=== PATIENT | female | born 1995 | race Two or more races ===

== ENCOUNTER 2018-09-22 17:17 | Emergency (ER) | payer OTHER ==
--- NOTE | 2018-09-22 17:51 | EDPHY ---
H & P Stated Complaint: pt had mech fall onto R elbow, L hand, and chin. -LOC, lac to chin Time Seen by Provider: 09/22/18 17:31 HPI/ROS: CHIEF COMPLAINT: Chin laceration right elbow injury HISTORY OF PRESENT ILLNESS: 23-year-old female arrives via private vehicle. Patient states that earlier today she was walking, was on her phone does not think attention, sustained a mechanical fall falling forward impacting her chin as well as impacted right elbow. She went to [facility] , had and x-ray performed of right elbow. Results of the x-ray are unknown however she brought the CD with her from [facility]. No upper extremity immobilization pre- hospital. She is also to the ER for wound repair for chin. She denies: Loss of consciousness, midline C-spine pain, mandible pain, dental malalignment, nausea, vomiting, headache, syncope, back pain, abdominal pain or trauma, back pain or trauma, peripheral paresthesia, weakness, numbness. PRIMARY CARE PROVIDER: [facility] REVIEW OF SYSTEMS: 10 systems reviewed and negative with the exception of the elements mentioned in the history of present illness PAST MEDICAL/SURGICAL HISTORY: no anticoagulant use, no relevant medical/ surgical history. Tetanus up-to-date SOCIAL HISTORY: denies alcohol use at time of incident PHYSICAL EXAM 1) GENERAL: Well-developed, well-nourished, alert and oriented. Appears to be in no acute distress. Answering questions appropriately. Observed ambulating stable steady gait without assistance 2) HEAD: Normocephalic, atraumatic 3) HEENT: Pupils equal, round, reactive to light bilaterally. Negative Horners. Nasopharynx, oropharynx, clear. No deformity or angulation of nose. No septal hematoma. No rhinorrhea. No oral trauma. Ears bilaterally with normal tympanic membranes. No hemotympanum. No fluid or blood in the external auditory canal. No raccoon eyes. No Medina sign. Teeth are normally aligned with no gross malocclusion, TMJ bilaterally nontender, facial bones nontender including the zygomatic arch, maxilla mandible. Midline chin laceration measuring 1.5 cm well delineated superficial. 4) NECK: No cervical collar is on. Posterior cervical spine is nontender, no stepoff, no effusion. Full range of motion which does not elicit any midline cervical spine pain, no posterior midline tenderness, no step-off. 5) LUNGS: Clear to auscultation bilaterally, no wheezes, no rhonchi, no retractions. No obvious signs of trauma. No chest wall pain. No flaring, no grunting. Moving symmetrically. No crepitus. 6) HEART: [Regular rate and rhythm, 7) ABDOMEN: No guarding, no rebound, no focal tenderness, no peritoneal signs, no signs of trauma, no ecchymosis 8) MUSCULOSKELETAL: Right upper extremity: No visible signs of trauma. Soft compartments throughout. Focally tender to palpation right radial head. Intact skin. Radial ulnar median nerve function intact distally. Otherwise, Moving all extremities, no focal areas of tenderness, no obvious trauma. 9) BACK: No midline vertebral tenderness, no fluctuance, no step-off, no obvious trauma, no visual or palpable abnormality. 10) SKIN: No laceration. No abrasion DIFFERENTIAL DIAGNOSIS: In no particular order including but not limited to fracture, sprain, strain, dislocation - Personal History Current Tetanus/Diphtheria Vaccine: Yes Current Tetanus Diphtheria and Acellular Pertussis (TDAP): Yes - Medical/Surgical History Hx Asthma: No Hx Chronic Respiratory Disease: No Hx Diabetes: No Hx Cardiac Disease: No Hx Renal Disease: No Hx Cirrhosis: No Hx Alcoholism: No Hx HIV/AIDS: No Hx Splenectomy or Spleen Trauma: No Other PMH: denies - Social History Smoking Status: Never smoked Constitutional: Initial Vital Signs Temperature (C) 37.5 C 09/22/18 17:38 Heart Rate 105 H 09/22/18 17:38 Respiratory Rate 20 09/22/18 17:38 Blood Pressure 162/95 H 09/22/18 17:38 O2 Sat (%) 98 09/22/18 17:38 O2 Delivery Mode Room Air Allergies/Adverse Reactions: No Known Allergies Allergy (Unverified 09/22/18 17:42) Home Medications: Medication Instructions Recorded NK [No Known Home Meds] 09/22/18 Medical Decision Making Procedures: Procedure: Laceration repair with tissue adhesive Verbal consent was obtained from the [patient]. The [wound size] laceration on the [location]. The wound was [scrubbed] and explored to its base with a gloved finger. No foreign body seen, no foreign bodies palpated. [There were no deep structures involved.] The wound was repaired with tissue adhesive. The procedure was performed by [myself]. Patient has been informed that scarring will occur, although efforts have been made to minimize this. Procedure: Splint An upper extremity sling was applied by ER event technician. After application of the splint I returned and re-examined the patient. The splint was adequately immobilizing the joint and distal to the splint the patient's circulation and sensation were intact. Patient shows no signs of compartment syndrome. Was given orthopedic precautions. ED Course/Re-evaluation: 5:48 p.m.: Regarding the patient's chin lacerations was closed primarily using tissue adhesive, see procedure note. Patient also brought with her a a pre-hospital CD of right elbow x-ray. In the radiology department we were able to open these images however the images were suboptimal however was able to visualize a posterior fat pad with no definitive radial head fracture. She is neurologically intact with no evidence of open wound in this area. At this time do not think that repeat x-ray from the ER is indicated as I plan on splinting the area given the presence of a posterior fat pad and recommend follow up with Orthopedics. Departure - Departure Disposition: Home, Routine, Self-Care Clinical Impression: Injury of right elbow Qualifiers: Encounter type: initial encounter Qualified Code(s): S59.901A - Unspecified injury of right elbow, initial encounter Chin laceration Qualifiers: Encounter type: initial encounter Qualified Code(s): S01.81XA - Laceration without foreign body of other part of head, initial encounter Condition: Good Instructions: Laceration (ED), Elbow Fracture (ED), Skin Adhesive Care (ED) Additional Instructions: Return to the ER immediately if you experience discoloration, have worsening pain, numbness, tingling, or any other symptoms that concern you. If you received x-rays in the emergency department today, be advised, that ligamentous , tendon, muscular, and other non-bony injury cannot be fully ruled out. Try to keep your affected extremity elevated above the level of your chest, and keep cold packs on the affected area, for the next 48 hours. Referrals: Kenna Mandel MD [Medical Doctor] - 2-3 days, call for appt. (Dr. Mandel is an orthopedic surgeon)
[2018-09-22] MEDS ORDERED: SKIN ADHESIVE (DERMABOND) 1 EACH TP ONE (18:35)
[2018-09-22 18:49] VITALS: BP 132/82
== END 2018-09-22 19:08 | disposition home or self-care (01) ==
PROC: 0HQ1XZZ Repair Face Skin, External Approach (ICD-10-PCS; principal; 2018-09-22)
DX: S01.81XA Laceration without foreign body of other part of head, initial encounter (principal); S59.901A Unspecified injury of right elbow, initial encounter; W19.XXXA Unspecified fall, initial encounter; Y93.01 Activity, walking, marching and hiking